=== PATIENT | female | born 1960 | race Caucasian/White ===

== ENCOUNTER → 2017-11-25 | Outpatient (CLI) | payer MEDICARE, OTHER ==
--- NOTE | 2017-11-26 10:27 | MM ---
Reason for exam: screening (asymptomatic). Last mammogram was performed 1 year and 8 months ago. History: Patient is postmenopausal and had first child at age 33. Family history of breast cancer in maternal aunt. Physical Findings: A clinical breast exam by your physician is recommended on an annual basis and results should be correlated with mammographic findings. MG Screening Mammo w CAD Bilateral CC and MLO view(s) were taken. Prior study comparison: March 29, 2016, bilateral MG screening mammo w CAD. September 08, 2014, bilateral MG screening mammo w CAD. The breast tissue is extremely dense which could obscure a lesion on mammography. Finding: There are typically benign round calcifications in the left breast. Benign vascular calcifications in the right breast. There is no discrete abnormality. ASSESSMENT: Benign, BI-RAD 2 RECOMMENDATION: Routine screening mammogram of both breasts in 1 year.
[2017-11-28 12:23] LABS: Alpha 1 Anti-Trypsin 88 mg/dL (90 - 200); Alpha-1-Antitrypsin Phenotype MZ
== END | disposition home or self-care (01) ==
LOC: RADMAMWWP 13:50
PROVIDERS: ATTEND Internal Medicine
DX: Z12.31 Encounter for screening mammogram for malignant neoplasm of breast (principal); K76.89 Other specified diseases of liver; R79.89 Other specified abnormal findings of blood chemistry; R94.5 Abnormal results of liver function studies
CPT/HCPCS: 36415; 77067; 82103; 82104

== ENCOUNTER → 2018-11-11 | Outpatient (CLI) | payer MEDICARE, OTHER ==
--- NOTE | 2018-11-11 09:07 | US ---
EXAMINATION TYPE: US liver DATE OF EXAM: 11/11/2018 COMPARISON: NONE CLINICAL HISTORY: K76.89 Other specified diseases of liver. abnormal liver function EXAM MEASUREMENTS: Liver Length: 11.0 cm Gallbladder Wall: 0.3 cm CBD: 0.6 cm Right Kidney: 10.0 x 3.8 x 5.7 cm Pancreas: appears wnl Liver: Midline soft tissue density, adjacent to gallbladder does not peristalse during real time sca nning. This area measures 6.7 x 2.0 x 6.7 cm. This may be an exophytic hepatic mass from the left h epatic lobe with poorly defined margins on image 48/56. Gallbladder: No stones seen Evidence for sonographic Valentin's sign: No CBD: wnl Right Kidney: No hydronephrosis or masses seen IMPRESSION: 6.7 cm ill-defined mass abuts the left hepatic lobe and could represent a true hepatic lesion that is exophytic however again the margins are not clearly defined. The technical instructor notes no peristalsis ho wever an opposing loop of bowel is possible. CT with oral and intravenous contrast is recommended for more clear anatomic delineation.
== END | disposition home or self-care (01) ==
LOC: RADUSWWP 08:16
PROVIDERS: ATTEND Internal Medicine
DX: R16.0 Hepatomegaly, not elsewhere classified (principal); K76.89 Other specified diseases of liver
CPT/HCPCS: 76705

== ENCOUNTER → 2018-12-25 | Outpatient (CLI) | payer MEDICARE, OTHER ==
--- NOTE | 2018-12-26 08:14 | CT ---
EXAMINATION TYPE: CT abdomen wo/w con DATE OF EXAM: 12/25/2018 COMPARISON: None HISTORY: Abnormal liver function test. Patient poor historian. CT DLP: 516.4 mGycm Automated exposure control for dose reduction was used. TECHNIQUE: Helical acquisition of images was performed from the lung bases through the top of iliac crest to include entire abdomen. CONTRAST: Performed with Oral Contrast and without and with IV Contrast, patient injected with 100ml mL of Isov ue 300. FINDINGS: LUNG BASES: No significant abnormality is appreciated. LIVER/GB: Hepatic mass suspected on ultrasound is not reproduced at this time. The liver is homogeneo us. Gallbladder and biliary tree are within normal limits. PANCREAS: No significant abnormality is seen. SPLEEN: No significant abnormality is seen. ADRENALS: No significant abnormality is seen. KIDNEYS: No significant abnormality is seen. BOWEL: No significant abnormality is seen. LYMPH NODES: No significant abnormality is seen. OSSEOUS STRUCTURES: No significant abnormality is seen. FREE AIR: No free air is visualized. OTHER: IMPRESSION: Hepatic mass suspected on ultrasound is not reproduced at this time.
== END | disposition home or self-care (01) ==
LOC: RADCTMAIN 16:38
PROVIDERS: ATTEND Internal Medicine
DX: K76.89 Other specified diseases of liver (principal)
CPT/HCPCS: 74170; Q9967

== ENCOUNTER → 2019-04-14 | Outpatient (CLI) | payer MEDICARE, OTHER ==
[2019-04-14 14:29] LABS: Basophils % (A) 1 %; Eosinophils # (A) 0.1 k/uL (0-0.7); Eosinophils % (A) 1 %; HCT 38.6 % (34.0-46.0); HGB 12.9 gm/dL (11.4-16.0); Lymphocytes # (A) 1.8 k/uL (1.0-4.8); Lymphocytes % (A) 30 %; MCH 31.1 pg (25.0-35.0); MCHC 33.3 g/dL (31.0-37.0); MCV 93.2 fL (80.0-100.0); Mean Platelet Volume 5.8; Monocytes # (A) 0.4 k/uL (0-1.0); Monocytes % (A) 6 %; Neutrophils # (A) 3.5 k/uL (1.3-7.7); Neutrophils % (A) 59 %; Platelet Count 325 k/uL (150-450); RBC 4.14 m/uL (3.80-5.40); RDW 12.6 % (11.5-15.5); WBC 5.9 k/uL (3.8-10.6)
[2019-04-14 19:51] LABS: African American GFR (CKD) 117.3 (60.0-200.0); Albumin 4.6 g/dL (3.80-4.90); Albumin/Globulin Ratio 2.09 (1.60-3.17); Anion Gap 5.7 mmol/L (4.00-12.00); BUN/Creat Ratio 31.67 Ratio (12.00-20.00); Calcium 9.6 mg/dL (8.7-10.3); Carbon Dioxide 30.3 mmol/L (21.6-31.8); Globulin 2.2 g/dL (1.6-3.3); Potassium 4.7 mmol/L (3.5-5.5); Total Bilirubin 0.3 mg/dL (0.3-1.2); Total Protein 6.8 g/dL (6.2-8.2)
== END | disposition home or self-care (01) ==
LOC: LABWHC1 13:53
PROVIDERS: ATTEND Internal Medicine Gastroenterology
DX: E88.01 Alpha-1-antitrypsin deficiency (principal)
CPT/HCPCS: 36415; 80053; 85025

== ENCOUNTER 2021-12-04 02:22 | Emergency (ER) | payer MEDICARE, OTHER ==
[2021-12-04 02:31] VITALS: RESP 16; TEMP 98.8
[2021-12-04] MEDS ORDERED: LORazepam 1 MG TAB PO STA (02:44)
--- NOTE | 2021-12-04 05:07 | ED ---
Anxiety HPI - General Chief Complaint: Anxiety Stated Complaint: Anxiety Time Seen by Provider: 12/04/21 02:29 Source: patient, EMS Mode of arrival: EMS - History of Present Illness Initial Comments: This patient is a 61-year-old woman brought to have evaluation for anxiety and tremor. The patient has history of severe anxiety in the past and had been taking Ativan regularly. She reportedly had changed physicians a number of weeks ago and her Ativan prescription was not renewed. She is to see new physician in the coming week. The patient denies chest pain. She does feel mildly short of breath. MD Complaint: anxiety, other (Tremor) -: hour(s) Symptoms: dyspnea, palpitations, extremity numbness/tingling, dry mouth Place: home Previous History of Same: Yes Severity: severe Quality: similar to prior episodes Provoking factors: medication change Improves With: nothing Worsens With: nothing - Related Data Home Medications: Previous Rx's Medication Instructions Recorded Melatonin 5 mg PO HS #20 tablet 12/04/21 Allergies/Adverse Reactions: Allergies Allergy/AdvReac Type Severity Reaction Status Date / Time No Known Allergies Allergy Verified 12/04/21 02:26 Review of Systems ROS Statement: Those systems with pertinent positive or pertinent negative responses have been documented in the HPI. ROS Other: All systems not noted in ROS Statement are negative. Constitutional: Denies: fever, chills, weakness Respiratory: Reports: dyspnea. Denies: cough, wheezes Cardiovascular: Denies: chest pain, palpitations, syncope Gastrointestinal: Denies: abdominal pain, vomiting, diarrhea Genitourinary: Denies: dysuria Skin: Denies: rash Neurological: Denies: headache, weakness Psychiatric: Reports: anxiety Past Medical History Additional Past Medical History / Comment(s): Hard of hearing. History of Any Multi-Drug Resistant Organisms: None Reported Past Surgical History: No Surgical Hx Reported Past Psychological History: Anxiety, Depression Smoking Status: Never smoker Past Alcohol Use History: None Reported Past Drug Use History: None Reported General Exam Limitations: no limitations General appearance: alert, in no apparent distress, anxious, other (Mild tremor) Head exam: Present: atraumatic, normocephalic Eye exam: Present: normal appearance. Absent: scleral icterus, conjunctival injection Neck exam: Present: normal inspection Respiratory exam: Present: normal lung sounds bilaterally. Absent: respiratory distress, wheezes, rales, rhonchi, stridor Cardiovascular Exam: Present: regular rate, normal rhythm, normal heart sounds. Absent: systolic murmur, diastolic murmur, rubs, gallop GI/Abdominal exam: Present: soft. Absent: distended, tenderness, guarding, rebound, rigid, mass Extremities exam: Present: normal inspection, normal capillary refill. Absent: pedal edema, calf tenderness Back exam: Present: normal inspection. Absent: CVA tenderness (R), CVA tenderness (L) Neurological exam: Present: alert Skin exam: Present: warm, dry, intact, normal color. Absent: rash Course Vital Signs 12/04/21 12/04/21 02:26 05:23 Temperature 98.8 F Pulse Rate 88 66 Respiratory 16 16 Rate Blood Pressure 166/76 149/66 O2 Sat by Pulse 98 98 Oximetry Medical Decision Making - Medical Decision Making Patient is 61-year-old woman here with anxiety after her Ativan prescription was not renewed. She did have resolution of symptoms with one dose of Ativan here. She would like to go home. I did have moderate discussion at bedside with patient and sister regarding further medication, and at this point it would like to try melatonin at bedtime. This is prescribed. Discussed follow-up and return parameters Disposition Clinical Impression: Acute anxiety Disposition: HOME SELF-CARE Condition: Good Instructions (If sedation given, give patient instructions): Generalized Anxiety Disorder (ED) Prescriptions: Melatonin 5 mg PO HS #20 tablet Is patient prescribed a controlled substance at d/c from ED?: No Referrals: Nonstaff,Physician [Primary Care Provider] - 1-2 days
[2021-12-04 05:23] VITALS: BP 149/66; PULSE 66
== END 2021-12-04 06:15 | disposition home or self-care (01) ==
LOC: EC 02:22
DX: F41.9 Anxiety disorder, unspecified (principal); F32.A Depression, unspecified
CPT/HCPCS: 93005; 99283; 99284